=== PATIENT | male | born 1975 ===

== ENCOUNTER 2025-10-21 13:36 | Outpatient (AMB) | payer OTHER, SELFPAY ==
--- NOTE | 2025-10-21 13:50 | MHC.OFFVIS ---
Intake Visit Reasons: [place] Allergies No Known Allergies Allergy (Verified 08/07/25 10:20) HPI Comments Details: The patient is a 50 year old male presenting with right-sided trigeminal neuralgia. He has been experiencing this condition for four years, with episodes occurring three to four times a year and lasting for a month and a half to two months at a time. The pain begins as a headache on the right side, progresses to a feeling of something in his eye socket, and is characterized by jabbing sensations that feel like keys are being pulled out of my head. He reports photophobia and allodynia on the right side of his face during these episodes. He is currently prescribed gabapentin 300 mg, taking two pills three times a day, but reports it is not effective for his pain. He also takes baclofen as needed for pain. Other medications include lisinopril and a diuretic. A prior brain scan was performed at [facility]. [facility] Medical History (Updated 10/21/25 @ 14:00 by Jass Olivo MD) Erectile dysfunction Cigarette smoker Trigeminal neuralgia Obesity (BMI 30-39.9) Type 2 diabetes mellitus without complication, without long-term current use of insulin Primary hypertension Family History (Updated 08/07/25 @ 10:24 by OSCAR Schmidt) Maternal Grandmother Alzheimer disease Maternal Grandfather Stroke Paternal Grandfather Emphysema lung Social History (Updated 08/07/25 @ 10:25 by OSCAR Schmidt) Alcohol intake: former Patient Tobacco Use Status: Current everyday Tobacco user e-Cigarette/Vaping Use: Never Used Substance Use Type: Marijuana Review of Systems Narrative Constitutional:?No fever, chills, fatigue, weight loss, or night sweats. HEENT:? Complain of blurred vision and hearing loss Cardiovascular:?No chest pain, palpitations, orthopnea, PND, or leg swelling. Respiratory:?No cough, shortness of breath, wheezing, or hemoptysis. Gastrointestinal:? Complain of constipation and vomiting and blood in stool Genitourinary:?No dysuria, frequency, incontinence, or hematuria. Musculoskeletal:?No joint pain, stiffness, weakness, or muscle aches. Neurological:? Complain of difficulty walking confusion memory problem tremor headaches and cold intolerance Psychiatric:? Complain of depression and aggressive behavior Endocrine:?No heat/cold intolerance, polydipsia, polyuria, or hair/skin changes. Hematologic/Lymphatic:?No easy bruising, bleeding, or lymphadenopathy. Integumentary (Skin):?No rash, lesions, itching, or color changes. Allergic/Immunologic:?No seasonal allergies, hives, or recurrent infections. Physical Exam Neuro Other: Mental Status: Alert and oriented to person, place, and time. Normal attention. Normal spontaneous speech, fluency, and comprehension. No obvious issues with mood and memory. Affect is appropriate. Cranial Nerves: CN II: Visual mancera full to confrontation, visual acuity intact. CN III, IV, : Pupils equal, round, reactive to light and accommodation. Extraocular movements are normal. CN V: Facial sensation is normal. CN VII: Facial movements symmetrical. CN VIII: Hearing intact to bedside conversation is normal. CN IX, X: Palate elevates symmetrically. CN XI: Shoulder shrug and head turn symmetrical. CN XII: Tongue midline without atrophy or fasciculations. Motor: Bulk and tone normal in all extremities. No significant muscle weakness in arms and legs. No drift. Reflexes: Deep tendon reflexes 2+ and symmetric. Plantar response down-going bilaterally. Coordination: Apzffz-tn-rtud and cleb-sd-aohy testing normal. No dysmetria. Gait and Station: No obvious gait abnormality. No ataxia or instability. Sensory: Intact to light touch, pinprick, and vibration. Romberg is negative. Extrapyramidal: Full facial expressions and blinking. No rigidity. Movements are appropriate with no tremor or abnormality. Speech: Normal; no dysarthria or tremor. Assessment & Plan Assessment & Plan (1) Trigeminal neuralgia: Comment: Meds tried: Gabapentin, baclofen MRI brain [facility] at [facility] in April 2025: SCA contacting R trigeminal and non specific WM changes (reported) MRA brain at [facility] in April 2025: WNL (REPORTED) Code(s): G50.0 - Trigeminal neuralgia Category: Medical Plan Impression: Right trigeminal neuralgia Rec: a: Decrease gabapentin to 300mg one tid b: Add carbamazepine 100mg bid c: If carbamazepine would not work, I will consider surgical decompression I discussed with the patient that his brain scan showed a blood vessel close to the nerve, which is likely causing his pain. I explained that we would start a new medication, carbamazepine, and reduce the dose of his current medication, gabapentin. I informed him that if this treatment does not improve his symptoms, a referral to a surgeon would be the next step. He agreed with the plan to try the new medication first and to have labs done. We will reassess his condition in two months. Medications: New carbamazepine ER (Carbatrol) 100 mg PO BID 180 caps 0RF gabapentin 300 mg PO TID 180 caps 0RF Coding Level of Care Code New Pt Level 4 (45979) Diagnoses Trigeminal neuralgia G50.0
--- OUTSIDE RECORDS SUMMARY | 2025-10-21 17:28 | XMS_ITS | Patient Health Record ---
Author Organization [facility] are Address [address] [place] [address] Care Team Providers Care Floor Technician Name Role Phone NO, PCP Primary Care Provider JANELLE Jansen Unavailable [phone] Allergies No Known Allergies Reason For Referral No Information Medications Medication SIG (Take, Route, Frequency, Duration) Notes Start Date End Date Status Atorvastatin Calcium 20 mg daily Active metFORMIN HCl 500 mg bid Activ e amLODIPine Besylate 5 mg daily Active Losartan Potassium 100 mg daily Active Augmentin 875-125 MG Tablet 1 tablet Orally every 12 hrs; Duration: 10 day(s) 04/09/2021 Active Gemfibrozil 600 mg bid Active Trulicity 1.5 mg weekly Active [place] 3 Active Social History Social History Additional Details Category Social Info Options Details Miscellaneous: Travel outside of [facility] States: none in the last 30 days [facility] Tobacco Use: Tobacco Use/Smoking Curre nt Smoker-1 PPD [facility] Drugs/Alcohol: DO NOT USE Do you sm juan j marijuana? Admits-daily Plan Of Treatment No Information Insurance Providers Payer Name Payer Address Payer Phone Subscriber Number Group Number Insured Name Patient Relationship to Insured Coverage Start Date Coverage End Date [facility] [address] [address] [place] [phone] [id number] MARIA G BURCIAGA Self - patient is the insured Medications Administered Medication Instructions Date of Administration Dosage Notes cefTRIAXone Sodium 04/09/2021 1000 mg Lidocaine HCl 04/09/2021 2.1 mL Medical (General) History Medical History History ICD Code diabetic hypertension high cholesterol Surgical History Surgery Date(Month/Year) no recent or major surgeries
--- OUTSIDE RECORDS SUMMARY | 2025-10-21 17:28 | XMS_ITS | Clinical Summary ---
Author Organization [facility] [address] [place] [address] [place] [phone] Phone Care Team Providers Care Station Installer And Repairer Name Role Phone Dorian Carlisle MD Primary Care Provider Allergies No known active allergies Medications bisacodyL (DULCOLAX) 5 mg EC tablet Take 2 tablets by mouth right before beginning bowel prep. See instructions provided by the office 2 tablet 5 Active polyethylene glycol (Golytely) 236-22.74-6.74 -5.86 gram solution Take 4L by mouth once for one dose. May substitue any PEG. Starting at 6PM the night before your procedure drink 1 8oz glasses at your own pace until you complete half of the gallon. Finish 2nd half of the gallon 5 hours before your procedure. 4000 mL 5 Active lisinopril (PRINIVIL,ZESTR IL) 40 mg tablet Take 1 tablet (40 mg total) by mouth 1 (one) time each day. 90 each 5 Active chlorthalidone (HYGROTON) 25 mg tablet Take 1 tablet (25 mg total) by mouth 1 (one) time each day. 90 each 5 Active baclofen (LIORESAL) 20 mg tablet Take 1 tablet (20 mg total) by mouth 3 (three) times a day. 270 each 5 Active gabapentin (NEURONTIN) 300 mg capsule Take 2 capsules (600 mg total) by mouth 3 (three) times a day. 540 each 5 Active rosuvastatin (CRESTOR) 5 mg tablet Take 1 tablet (5 mg total) by mouth 1 (one) time each day. 90 each 1 5 Active sodium,potassiu m,mag sulfates (Suprep Bowel Prep Kit) 17.5-3.13-1.6 gram recon soln bowel prep kit oral solution Take 177ML by mouth for 2 doses. SEE INSTRUCTIONS PROVIDED BY OFFICE. 1 kit Active ibuprofen (ADVIL,MOTRIN) 800 mg tablet Take 1 tablet (800 mg total) by mouth 3 (three) times a day if needed for mild pain (pain). 270 tablet 5 Active Active Problems Problem Noted Date Diagnosed Date Primary hypertension 12/06/2024 Type 2 diabetes mellitus wit hout complication, without long-term current use of insulin 12/06/2024 Obesity (BMI 30-39.9) 12/06/2024 Cigarette smoker 12/06/2024 Erectile dysfunction 12/06/2024 Trigeminal neuralgia Encounters Date Type Department Care Team Description 08/27/2025 Telephone Gastroenterology - [place] 175 [facility] 175 [facility] [address] [place] [address] Jesús Casarez MD 08/25/2025 Telephone Adult Medicine [address] [phone] Dorian Carlisle MD 08/20/2025 Telephone Adult Medicine [address] [phone] Dorian Carlisle MD 08/06/2025 Telephone Adult Medicine [address] [phone] Dorian Carlisle MD 08/01/2025 Telephone Adult Medicine [address] [phone] Dorian Carlisle MD 07/29/2025 12:00 PM EDT Office Visit Adult Medicine [address] [phone] Dorian Carlisle MD Trigeminal neuralgia of right side of face (Primary Dx); Type 2 diabetes mellitus without complication, without long-term current use of insulin [place] [place] [facility] [place] Primary hypertension 07/22/2025 11:51 PM EDT - 07/23/2025 4:[address] [facility] [address] [place] [address] Leonides Wilder MD Syncope and collapse (Primary Dx); Injury of head, initial encounter; Abrasion of chin, initial encounter; Abrasion of right knee, initial encounter Discharge Disposition: Home or Self Care from Last 3 Months Immunizations Immunization Administration Dates Next Due Tdap Tetanus diptheria acell ular pertussis (Boostrix; Adacel) 7yo and older 07/23/2025 Medical History Medical History Date Comments Hypertension Diabetes mellitus [place] [place] [facility] [place] Trigeminal neuralgia Family History Medical History Relation Name Comments No Known Problems Father Stroke Maternal Grandfather Alzheimer's disease Maternal Grandmother No Known Problems Mother Emphysema Paternal Grandfather No Known Problems Paternal Grandmother No Known Problems Sister 1 No Known Problems Sister 2 Relation Name Status Comments Father Alive Maternal Grandfather Maternal Grandmother Mother Alive Paternal Grandfather Paternal Grandmother Sister 1 Alive Sister 2 Alive Social History Tobacco Use Types Packs/Day Years Used Date Smoking Tobacco: Every Day Cigarettes Passive Smoke Exposure: Never Smokeless Tobacco: Never Tobacco Cessation:Ready to Q uit: Not Asked; Counseling Given: Not Answered Comments:11/2024: 1 ppd Alcohol Use Standard Drinks/Week Comments Not Currently 0 (1 standard drink = 0.6 oz pur e alcohol) hx alcohol abuse. no rehab Housing Instability Answer Date Recorde d Are you worried that in the next 2 months you may not have stable housing? Yes 05/13/2025 Food Access & Nutrition Answer Date Rec orded Do you have access to a vari ety of food including fruits and vegetables? Yes 05/13/2025 Access to Healthcare Answer Date Record ed Within the last 3 months, jennifer ba many times did you visit the emergency department for your medical care? 0 05/13/2025 Health Literacy Answer Date Recorded How often do you need to hav e someone help you when you read instructions, pamphlets, or other written material from your doctor or pharmacy? Never 05/13/2025 Caregiver: How often do you need to have someone help you when you read instructions, pamphlets, or other written material from your doctor or pharmacy? Not on file 05/13/2025 Financial Risk Answer Date Recorded How hard is it for you to pa y for the very basics like food, housing, medical care, and air conditioning / heating? Very hard 05/13/2025 Transportation Answer Date Recorded Has the lack of transportati on kept you from meetings, work, or from getting things needed for daily living? Yes Has the lack of transportati on kept you from medical appointments or from getting medications? No 05/13/2025 Social Isolation Answer Date Recorded How often do you feel lonely or isolated from th ose around you? Never 05/13/2025 Food Risk Answer Date Recorded Within the past 12 months we worried whether our food would run out before we got money to buy more. Often true 05/13/2025 Within the past 12 months th e food we bought just didn't last and we didn't have money to get more. Often true 05/13/2025 Dependent Care Answer Date Recorded Do you need help finding or paying for care for your loved ones. For example, child advocate or elderly care for an older adult? No 05/13/2025 Education Answer Date Recorded Do you think completing more education or training, like finishing a GED, going to college, or learning a trade, would be helpful for you? No 05/13/2025 Employment and Income Answer Date Recor ded During the last four weeks, have you been actively looking for work? No 05/13/2025 Living Situation Answer Date Recorded What is your living situation? Unrecognized valu e 05/13/2025 Sex and Gender Information Value Date Recorded Sex Assigned at Not on file Legal Sex Male 11:39 AM EDT Gender Identity Not on file Sexual Orientation Not on file Occupation Industry Job Start Date Job End Date unemployed right now Not on file Not on file Not on file Last Filed Vital Signs Vital Sign Reading Time Taken Comments Blood Pressure 121/68 07/29/2025 12:19 PM EDT Pulse 80 07/29/2025 12:19 PM EDT Temperature 36.3 C (97.4 F) 07/29/2025 12:19 PM EDT Respiratory Rate 15 07/29/2025 12:19 PM EDT Oxygen Saturation 98% 07/29/2025 12:19 PM EDT Inhaled Oxygen Concentration - - Weight 96.2 kg (212 lb) 08/14/2025 12:00 PM EDT Height 182.9 cm (6') 08/14/2025 12:00 PM EDT Body Mass Index 28.75 08/14/2025 12:00 PM EDT Plan of Treatment Upcoming Encounters Date Type Department Care Team (Late st Contact Info) Description 10/30/2025 1:00 PM EST Office Visit Adult Medicine [facility] [address] [place], [place] [phone] Dorian Carlisle MD [address] [place], [place] Health Maintenance Due Date Last Done Comments Diabetes: Annual Foot Exam 1983 Diabetes: Annual Retina Eye Exam 1983 Hepatitis B Vaccines (1 of 3 - 19+ 3-dose series) 1992 Zoster Vaccines (1 of 2) 2023 COVID-19 Vaccine (2 - season) 2025 01/26/2021 Diabetes: Blood Sugar Control Test (HGBA1C) 11/15/2025 05/15/2025, 04/15/2022 Influenza Vaccine (#1) 2026 08/30/2022, 2019 Postponed from 06/23/2025 (Patient Refused) Social Influencers of Health Screening 05/13/2026 05/13/2025 Diabetes: Annual Urine Albumin-Creatinine Ratio (uACR) 05/15/2026 05/15/2025, 04/15/2022, 04/15/2022, Additional history exists Diabetes: Annual GFR (Glomerular Filtration Rate) 07/22/2026 07/22/2025, 05/15/2025, 04/15/2022 Hypertension/CHF/CAD Annual BMP Blood Test 07/22/2026 07/22/2025, 05/15/2025, 04/15/2022 Colorectal Cancer Screening: FIT-DNA (Cologuard) 04/09/2028 04/09/2025 Cholesterol Screening (Lipid Panel) 05/15/2030 05/15/2025 Pneumococcal Vaccine: 50+ Years (2 of 2 - PCV) 12/06/2034 08/01/2019 Postponed from 08/01/2020 (Patient Refused) DTaP,Tdap,and Td Vaccines (2 - Td or Tdap) 07/23/2035 07/23/2025 RSV Immunization Adult Patients (1 - 1-dose 75+ series) 2048 Depression Screening Completed 05/13/2025 HIV Screening Completed 05/15/2025 Hepatitis C Screening Completed 05/15/2025 HIB Vaccines Aged Out No longer eligi ble based on patient's age to complete this topic HPV Vaccines Aged Out No longer eligi ble based on patient's age to complete this topic Hepatitis A Vaccines Aged Out No long er eligible based on patient's age to complete this topic IPV Vaccines Aged Out No longer eligi ble based on patient's age to complete this topic MMR Vaccines Aged Out No longer eligi ble based on patient's age to complete this topic Meningococcal ACWY Vaccine Aged Out N o longer eligible based on patient's age to complete this topic Meningococcal B Vaccine Aged Out No l onger eligible based on patient's age to complete this topic RSV Immunization Patients Under 20 months Aged Out No longer eligible based on patient's age to complete this topic Varicella Vaccines Aged Out No longer eligible based on patient's age to complete this topic Procedures Procedure Name Priority Date/Time Associated Diagnosis Comments ECG ANNOTATED 07/25/2025 TROPONIN I HIGH SENSITIVITY Timed 07/23/2025 1:[address] HEAD WO CONTRAST STAT 07/23/2025 1 :08 AM EDT TROPONIN I HIGH SENSITIVITY Timed 07/23/2025 12:21 AM EDT XR CHEST 1 VIEW STAT 07/23/2025 12:16 AM EDT ECG 12-LEAD STAT 07/23/2025 12:03 AM EDT MAGNESIUM STAT Add-on 07/22/2025 10:00 PM EDT CBC WITH AUTO DIFFERENTIAL STAT 07/22/2025 10:00 PM EDT ACTIVATED PARTIAL THROMBOPLASTIN TIME STAT 07/22/2025 10:00 PM EDT PROTHROMBIN TIME WITH INR STAT 07/22/2025 10:00 PM EDT BASIC METABOLIC PANEL STAT 07/22/2025 10:00 PM EDT CBC AND DIFFERENTIAL STAT 07/22/2025 10:00 PM EDT HEPATITIS C ANTIBODY Routine 05/15/2025 10:27 AM EDT Need for hepatitis C screening test HIV 1, 2 ANTIBODY, P24 ANTIGEN WITH REFLEX TO DIFFERENTIATION Routine 05/15/2025 10:27 AM EDT Screening for HIV (human immunodeficiency virus) MICROALBUMIN CREATININE URINE RATIO Routine 05/15/2025 10:27 AM EDT Type 2 diabetes mellitus without complication, without long-term current use of insulin (CMS/HCC V24, CMS/HCC V28) HEMOGLOBIN A1C Routine 05/15/2025 10:27 AM EDT Type 2 diabetes mellitus without complication, without long-term current use of insulin (CMS/HCC V24, CMS/HCC V28) LIPID PANEL WITH REFLEX TO DIRECT LDL Routine 05/15/2025 10:27 AM EDT Type 2 diabetes mellitus without complication, without long-term current use of insulin (CMS/HCC V24, CMS/HCC V28) from Last 3 Months or Most Recently Relevant to Health Maintenance Results * ECG-Annotated (07/25/2025) us Provider Onbase MD ECG ORDERABLES Final Result * Troponin I high sensitivity (07/23/2025 1:45 AM EDT) Only the most recent of2 resultswithin the time period is included. High Sensitivity Troponin I 11 <=79 ng/L LAB CHEMISTRY METHOD 07/23/2025 3:32 AM EDT [facility] Blood Venous blood specimen / Unknown Venipuncture / Unknown 07/23/2025 1:45 AM EDT 07/23/2025 2:54 AM EDT Narrative [facility] - 07/23/2025 3:32 AM EDT High levels of biotin in samples may falsely decrease hsTroponin values. Use caution when interpreting hsTroponin results in patients taking biotin who exhibit renal impairment (eGFR <60) or in patients taking more than 20 mg/day of biotin. us Leonides Wilder MD LAB BLOOD ORDERABLES Final R esult [facility] [address] [place] [address], [place] [phone] * CT Head wo Contrast (07/23/2025 1:08 AM EDT) Anatomical Region Laterality Modality Head and Neck Computed Tomogra phy 07/23/2025 1:33 AM EDT Impressions 07/23/2025 1:33 AM EDT No acute intracranial findings. This document has been electronically signed by: Savage Lorenzo MD on 07/23/2025 01:33:11 Narrative 07/23/2025 1:33 AM EDT INDICATION: syncope, head injury CT Head WO Contrast COMPARISON: None provided FINDINGS: No acute intracranial hemorrhage. No evidence of acute infarction. No mass-effect or midline shift. No hydrocephalus. Visualized paranasal sinuses are clear. The mastoid air cells are clear. The visible orbits are normal. No acute fracture. Unremarkable soft tissues. Procedure Note Savage Lorenzo MD - 07/23/2025 INDICATION: syncope, head injury CT Head WO Contrast COMPARISON: None provided FINDINGS: No acute intracranial hemorrhage. No evidence of acute infarction. No mass-effect or midline shift. No hydrocephalus. Visualized paranasal sinuses are clear. The mastoid air cells are clear. The visible orbits are normal. No acute fracture. Unremarkable soft tissues. IMPRESSION: No acute intracranial findings. This document has been electronically signed by: Savage Lorenzo MD on 07/23/2025 01:33:11 us Leonides Wilder MD IMG CT PROCEDURES Final Resu lt * XR Chest 1 View (07/23/2025 12:16 AM EDT) Anatomical Region Laterality Modality Body Radiographic Dee Dee ging 07/23/2025 9:33 AM EDT Impressions 07/23/2025 9:35 AM EDT No acute pulmonary disease. Code 68172 -------- FINAL REPORT -------- Dictated By: Chepe Brown Dictated Date: 07/23/2025 09:33 ET Assigned Physician: Chepe Brown Reviewed and Electronically Signed By: Chepe Brown Signed Date: 07/23/2025 09:35 ET Workstation ID: [id number] Transcribed By: Self Edit Transcribed Date: 07/23/2025 09:33 ET Narrative 07/23/2025 9:35 AM EDT HISTORY: The patient is a 49-year-old male with altered mental status. FINDINGS: Sitting AP portable radiographs of the chest, without previous for comparison, demonstrate degenerative changes of the thoracic spine. 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 The cardiac silhouette is within normal limits. The aortic knob is calcified. The lungs and costophrenic angles are clear. Procedure Note Chepe Brown MD - 07/23/2025 HISTORY: The patient is a 49-year-old male with altered mental status. FINDINGS: Sitting AP portable radiographs of the chest, without previousfor comparison, demonstrate degenerative changes of the thoracic spine.There is osteoarthritis of the right glenohumeral joint. The cardiacsilhouette is within normal limits. The aortic knob is calcified. Thelungs and costophrenic angles are clear. IMPRESSION: No acute pulmonary disease. Code 19846 -------- FINAL REPORT -------- Dictated By: Chepe Brown Dictated Date: 07/23/2025 09:33 ET Assigned Physician: Chepe Brown Reviewed and Electronically Signed By: Chepe Brown Signed Date: 07/23/2025 09:35 ET Workstation ID: [id number] Transcribed By: Self Edit Transcribed Date: 07/23/2025 09:33 ET Emilia MENSAH IMG XR PROCEDURES Final Result * ECG 12 lead (07/23/2025 12:03 AM EDT) [facility] Ventricular Rate ECG 65 BPM GEMUSE Atrial Rate 65 BPM GEMUSE P-R Interval 166 ms GEMUSE QRS Duration 90 ms GEMUSE Q-T Interval 378 ms GEMUSE QTc 393 ms GEMUSE P Wave [place] 56 degrees GEMUSE R [place] 64 degrees GEMUSE T [place] 32 degrees GEMUSE ECG Interpretation Normal sinus rhythm Poor R wave progression Abnormal ECG No previous ECGs available Confirmed by LAMBERT ROMERO ([id number]) on 07/24/2025 5:35:10 PM GEMUSE 07/23/2025 12:0 3 AM EDT 07/24/2025 5:35 PM EDT Emilia MENSAH ECG ORDERABLES Final Re sult GEMUSE * (ABNORMAL) CBC auto differential (07/22/2025 10:00 PM EDT) Pathologist [facility] WBC 13.8(H) 4.8 - 10.8 K/[facility] LAB HEMETOLOGY METHOD 07/22/2025 10:53 PM EDT [facility] RBC 5.60(H) 4.50 - 5.50 M/[facility] LAB HEMETOLOGY METHOD 07/22/2025 10:53 PM EDT [facility] Hemoglobin 14.9 13.5 - 17.5 g/dL LAB HEMETOLOGY METHOD 07/22/2025 10:53 PM EDT [facility] Hematocrit 45.5 42.0 - 54.0 % LAB HEMETOLOGY METHOD 07/22/2025 10:53 PM EDT [facility] MCV 82.0 79.0 - 98.0 FL LAB HEMETOLOGY METHOD 07/22/2025 10:53 PM [facility] MCH 26.8(L) 27.0 - 32.0 pcg LAB HEMETOLOGY METHOD 07/22/2025 10:53 PM EDT [facility] MCHC 32.7 32.0 - 37.0 g/dL LAB HEMETOLOGY METHOD 07/22/2025 10:53 PM [facility] RDW 12.8 11.0 - 15.0 % LAB HEMETOLOGY METHOD 07/22/2025 10:53 PM [facility] Platelets 328 130 - 400 K/mcL LAB HEMETOLOGY METHOD 07/22/2025 10:53 PM [facility] MPV 10.4 7.0 - 11.0 FL LAB HEMETOLOGY METHOD 07/22/2025 10:53 PM [facility] NRBC 0.0 <1.0 % LAB HEMETOLOGY METHOD 07/22/2025 10:53 PM [facility] NRBC Absolute 0.00 <0.10 K/mcL LAB HEMETOLOGY METHOD 07/22/2025 10:53 PM [facility] Neutrophils Relative 76.1 % LAB HEMETOLOGY METHOD 07/22[facility]2025 10:[facility] Lymphocytes Relative 14.1 % LAB HEMETOLOGY METHOD 07/22/2025 10:53 PM [facility] Monocytes Relative 8.8 % LAB HEMETOLOGY METHOD 07/22/2025 10:53 PM [facility] Eosinophils Relative 0.5 % LAB HEMETOLOGY METHOD 07/22/2025 10:53 PM EDT [facility] Basophils Relative 0.1 % LAB HEMETOLOGY METHOD 07/22/2025 10:53 PM EDT [facility] Immature Granulocytes Relative 0.4 % LAB HEMETOLOGY METHOD 07/22/2025 10:53 PM EDT [facility] Neutrophils Absolute 10.49(H) 1.50 - 7.00 K/mcL LAB HEMETOLOGY METHOD 07/22/2025 10:53 PM EDT [facility] Lymphocytes Absolute 1.95 1.00 - 5.00 K/mcL LAB HEMETOLOGY METHOD 07/22/2025 10:53 PM EDT [facility] Monocytes Absolute 1.21(H) 0.20 - 1.00 K/mcL LAB HEMETOLOGY METHOD 07/22/2025 10:53 PM EDT [facility] Eosinophils Absolute 0.07 0.00 - 0.50 K/mcL LAB HEMETOLOGY METHOD 07/22/2025 10:53 PM EDT [facility] Basophils Absolute 0.02 0.00 - 0.20 K/mcL LAB HEMETOLOGY METHOD 07/22/2025 10:53 PM EDT [facility] Immature Granulocytes Absolute 0.06(H) 0.00 - 0.03 K/mcL LAB HEMETOLOGY METHOD 07/22/2025 10:53 PM EDT [facility] Blood Venous blood specimen / Unknown Venipuncture / Unknown 07/22/2025 10:00 PM EDT 07/22/2025 10:27 PM EDT Emilia MENSAH LAB BLOOD ORDERABLES Fin al Result [facility] [address] [place] [address], * Activated partial thromboplastin time (07/22/2025 10:00 PM EDT) aPTT 34.0 24.1 - 39.3 sec LAB COAGULATION METHOD 07/22/2025 10:52 PM EDT [facility] Blood Venous blood specimen / Unknown Venipuncture / Unknown 07/22/2025 10:00 PM EDT 07/22/2025 10:27 PM EDT Emilia MENSAH LAB BLOOD ORDERABLES Fin al Result Performing Organization Address [facility]/ZIP Co de Phone Number [facility] [address] [place] [address], [place] [phone] * Prothrombin time with INR (07/22/2025 10:00 PM EDT) Protime 13.3 10.6 - 13.9 sec LAB COAGULATION METHOD 07/22/2025 10:52 PM EDT [facility] INR 1.1 LAB COAGULATION METHOD 07/22/2025 10:52 PM EDT [facility] Blood Venous blood specimen / Unknown Venipuncture / Unknown 07/22/2025 10:00 PM EDT 07/22/2025 10:27 PM EDT Emilia MENSAH LAB BLOOD ORDERABLES Fin al Result Performing Organization Address [facility]/ZIP Co de Phone Number [facility] [address] [place] [address], [place] [phone] * Magnesium (07/22/2025 10:00 PM EDT) Magnesium 2.0 1.9 - 2.6 mg/dL LAB CHEMISTRY METHOD 07/23/2025 12:08 AM EDT [facility] Blood Venous blood specimen / Unknown Venipuncture / Unknown 07/22/2025 10:00 PM EDT 07/22/2025 10:27 PM EDT us Leonides Wilder MD LAB BLOOD ORDERABLES Final R esult [facility] [address] [place] [address], * (ABNORMAL) Basic metabolic panel (07/22/2025 10:00 PM EDT) Sodium 137 133 - 145 mmol/L LAB CHEMISTRY METHOD 07/22/2025 10:52 PM [facility] Potassium 4.1 3.5 - 5.5 mmol/L LAB CHEMISTRY METHOD 07/22/2025 10:52 PM [facility] Chloride 102 96 - 110 mmol/L LAB CHEMISTRY METHOD 07/22/2025 10:52 PM [facility] CO2 31 21 - 32 mmol/L LAB CHEMISTRY METHOD 07/22/2025 10:52 PM [facility] Anion Gap 4 3 - 11 LAB CHEMISTRY METHOD 07/22/2025 10:52 PM [facility] Glucose 147(H) 70 - 100 mg/dL LAB CHEMISTRY METHOD 07/22/2025 10:52 PM [facility] BUN 26(H) 5 - 25 mg/dL LAB CHEMISTRY METHOD 07/22/2025 10:52 PM [facility] Creatinine 1.10 0.70 - 1.30 mg/dL LAB CHEMISTRY METHOD 07/22/2025 10:52 PM [facility] eGFR 81 >=60 mL/min/1. 73m2 LAB CHEMISTRY METHOD 07/22/2025 10:52 PM [facility] Comment:Calculation based on the Chronic Kidney Disease Epidemiology Collaboration (CKD-EPI) equation refit without adjustment for race. BUN/Creatinine Ratio 23.6 LAB CHEMISTRY METHOD 07/22/2025 10:52 PM [facility] Calcium 9.7 8.5 - 10.5 mg/dL LAB CHEMISTRY METHOD 07/22/2025 10:52 PM EDT [facility] Blood Venous blood specimen / Unknown Venipuncture / Unknown 07/22/2025 10:00 PM EDT 07/22/2025 10:27 PM EDT Emilia MENSAH LAB BLOOD ORDERABLES Fin al Result Performing Organization Address [facility]/ZIP Co de Phone Number [facility] [address] [place] [address], [place] [phone] * Hepatitis C antibody (05/15/2025 10:27 AM EDT) Hepatitis C Antibody Negative Negative LAB CHEMISTRY METHOD 05/15/2025 2:48 PM EDT [facility] Blood Venous blood specimen / Unknown Venipuncture / Unknown 05/15/2025 10:27 AM EDT 05/15/2025 10:27 AM EDT Chelle MENSAH LAB BLOOD ORDERABLES Final Resul t Performing Organization Address [facility] de Phone Number [facility] [address] [place] [address], [place] [phone] * HIV 1,2 antibody, p24 antigen with reflex to differentiation (05/15/2025 10:27 AM EDT) HIV Combo AB/AG Negative Negative LAB CHEMISTRY METHOD 05/15/2025 2:49 PM EDT [facility] Blood Venous blood specimen / Unknown Venipuncture / Unknown 05/15/2025 10:27 AM EDT 05/15/2025 10:27 AM EDT Narrative [facility] - 05/15/2025 2:49 PM EDT This assay is a 4th generation assay allowing for earlier detection of HIV infection by detecting the presence of the HIV-1 p24 antigen as well as the traditional antibodies to HIV type 1 (including group O) and type 2. Use of a 4th generation assay is the current CDC recommendation for HIV screening. us Chelle MENSAH LAB BLOOD ORDERABLES Final Resul t Performing Organization Address City/[facility]/ZIP Co de Phone Number [facility] [address] [place] [address], [place] [phone] * Lipid panel with reflex to direct LDL (05/15/2025 10:27 AM EDT) Cholesterol 126 0 - 200 mg/dL LAB CHEMISTRY METHOD 05/15/2025 1:17 PM EDT [facility] Triglycerides 82 0 - 150 mg/dL LAB CHEMISTRY METHOD 05/15/2025 1:17 PM EDT [facility] HDL 43 >=40 mg/dL LAB CHEMISTRY METHOD 05/15/2025 1:17 PM EDT [facility] LDL Calculated 67 0 - 100 mg/dL LAB CHEMISTRY METHOD 05/15/2025 1:17 PM EDT [facility] VLDL Cholesterol Miguel 16.4 mg/dL LAB CHEMISTRY METHOD 05/15/2025 1:17 PM EDT [facility] Non HDL Chol. (LDL+VLDL) 83 <145 mg/dL LAB CHEMISTRY METHOD 05/15/2025 1:17 PM EDT [facility] Chol/HDL Ratio 2.9 0.0 - 4.4 LAB CHEMISTRY METHOD 05/15/2025 1:17 PM EDT [facility] Blood Venous blood specimen / Unknown Venipuncture / Unknown 05/15/2025 10:27 AM EDT 05/15/2025 10:27 AM EDT us Chelle MENSAH LAB BLOOD ORDERABLES Final Resul t Performing Organization Address [facility]/ZIP Co de Phone Number [facility] [address] [place] [address], [place] [phone] * (ABNORMAL) Microalbumin creatinine urine ratio (05/15/2025 10:27 AM EDT) Creatinine, Urine 255.0 mg/dL LAB CHEMISTRY METHOD 05/15/2025 2:03 PM EDT [facility] Microalb, Ur 949.0(H) 0.0 - 29.0 mg/L LAB CHEMISTRY METHOD 05/15/2025 2:03 PM EDT [facility] Microalb/Crea t Ratio 372(H) <30 mg/g creat LAB CHEMISTRY METHOD 05/15/2025 2:03 PM EDT [facility] Urine Urine specimen obtained by clean catch procedure / Unknown Non-blood Collection / Unknown 05/15/2025 10:27 AM EDT 05/15/2025 10:27 AM EDT [employer] LAB URINE ORDERABLES Final Resul t Performing Organization Address [facility]/ZIP Co de Phone Number [facility] [address] [place] [address], [place] [phone] * Hemoglobin A1c (05/15/2025 10:27 AM EDT) [facility] Hemoglobin A1C 6.4 <6.5 % LAB CHEMISTRY METHOD 05/15/2025 1:58 PM EDT [facility] Mean Bld Glu Estim. 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
--- OUTSIDE RECORDS SUMMARY | 2025-10-21 17:28 | XMS_ITS ---
Author Name [facility] Organization Unknown History of Medication Use Medication Directions Dispensed Refills Start Date End Date Stat us glipiZIDE (GLUCOTROL) 10 MG tablet 1 tablet by mouth twice daily before meals 09/29/2022 active metFORMIN (GLUCOPHAGE) 1000 MG tablet 1 tablet by mouth twice daily before meals 09/29/2022 active Semaglutide (RYBELSUS) 3 MG TABS 1 tablet by mouth daily 30 minutes before breakfast 09/29/2022 active insulin glargine (LANTUS SOLOSTAR) 100 UNIT/ML prefilled pen Inject 40 units daily 05/18/2022 active amLODIPine (NORVASC) 5 MG tablet Take 1 Tablet (5 mg total) by mouth daily 04/15/2022 08/30/2022 active linaGLIPtin-metFORM IN (JENTADUETO) 2.5-1000 MG TABS TAKE 1 TABLET BY MOUTH TWICE A DAY WITH MEALS TWICE A DAY 04/15/2022 08/30/2022 active losartan (COZAAR) 100 MG tablet Take 1 Tablet (100 mg total) by mouth daily 04/15/2022 08/30/2022 active omega-3 acid ethyl esters (LOVAZA) 1 g capsule Take 2 Capsules by mouth 2 times daily 04/15/2022 08/30/2022 active amLODIPine (NORVASC) 5 MG tablet TAKE 1 TABLET BY MOUTH EVERY DAY 02/16/2022 04/15/2022 active losartan (COZAAR) 100 MG tablet TAKE 1 TABLET BY MOUTH EVERY DAY 09/23/2021 04/15/2022 aborted omega-3 acid ethyl esters (LOVAZA) 1 g capsule TAKE 2 CAPSULES BY MOUTH TWICE A DAY 08/20/2021 04/15/2022 aborted BD PEN NEEDLE REBECCA U/F 32G X 4 MM MISC Use to inject insulin 2x/day. E11.65 05/21/2021 05/19/2022 active glucose blood test strip 1 Strip by Other route 2 times daily Test Strip to be used with Glucometer one touch verio 05/21/2021 active atorvastatin (LIPITOR) 20 MG tablet Take 1 Tablet (20 mg total) by mouth every 24 hours 02/19/2021 08/30/2022 active insulin glargine (BASAGLAR KWIKPEN) 100 UNIT/ML prefilled pen INJECT 20 UNITS BEFORE BEDTIME SUBCUTANEOUS 30 DAYS for 30 05/18/2022 aborted Problems Problem Status Onset Date Problem Type Date of Resoluti on Source Nicotine abuse active 2021-02-20 ProblemAct [facility] Obesity (BMI 35.0-39.9 without comorbidity) active 2021-02-20 ProblemAct [facility] Microalbuminuria active 2017-11-11 ProblemAct [facility] Hyperlipidemia active 2021-02-19 ProblemAct [facility] C Essential hypertension active 2017-04-20 ProblemAct [facility] MARIAA on CPAP active 2017-11-21 ProblemAct [facility] Poorly controlled diabetes mellitus active 2021-02-19 ProblemAct [facility] Immunizations Vaccine Date Source Lot Number Status Influenza Virus Vaccine, MDC K, PF, Quadrivalent 08/30/2022 [facility] [id number] completed COVID-19 vaccine, monovalent (NIR) vector-nr, rS-Ad26, PF 0.5 mL 01/26/2021 [facility] [id number] completed Influenza Virus Vaccine, Rec ombinant, Quadrivalent, Pf 07/23/2020 [facility] [id number] completed Pneumococcal Polysaccharide (23 Valent) 08/01/2019 [facility] [id number] completed Assessment and Plan ID Update Date Source Alert Text [place] [id number] 01/26/2021 [place] [facility] COVID Vaccination: This patient has received the JSN, COVID-19, vector-nr, rS-Ad26, PF, 0.5 mL vaccination on 01/26/2021 with lot number [id number] at [facility] ([facility]). Encounters Encounter Type Encounter Reason Primary Diagnosis Location Date Ambulatory Type 2 diabetes mellitus with hyperglycemia [facility] 09/29/2022 Ambulatory Encounter for immunization [facility] 08/30/2022 Ambulatory Diabetes [facility] 05/18/2022 Ambulatory Type 2 diabetes mellitus with hyperglycemia Type 2 diabetes mellitus with hyperglycemia [facility] 04/15/2022 Ambulatory Follow-up [facility] 04/15/2022 Ambulatory Type 2 diabetes mellitus with hyperglycemia Type 2 diabetes mellitus with hyperglycemia [facility] 09/22/2021 Ambulatory [facility] 09/22/2021 Care Team Organization Name Specialty Phone Email Start Date End Da te [facility] 06/15/2024 [facility] [place] JOHN ORTIZ Primary Care [email or web address] 09/19/2022 [facility] JOHN ORTIZ Primary Care [email or web address] [facility] [email or web address] 02/19/2021 2 [facility] ANGEL [phone] Primary Care 10/14/2019 0 [facility] JOHN ORTIZ Primary Care [email or web address]
== END 2025-10-21 14:06 | disposition home or self-care (01) ==
LOC: HO.HSM 13:36
PROVIDERS: PCP Internal Medicine; Visit Provider Psychiatry & Neurology Neurology
DX: G50.0 Trigeminal neuralgia (principal)
CPT/HCPCS: 99204

== ENCOUNTER → 2025-10-21 13:36 | Outpatient (BNVA) | payer OTHER, SELFPAY | PROVIDERS: PCP Internal Medicine; Visit Provider Psychiatry & Neurology Neurology | DX: G50.0 Trigeminal neuralgia (principal); Z79.899 Other long term (current) drug therapy | CPT/HCPCS: 99202 ==